=== PATIENT | male | born 1980 | race Caucasian/White ===

== ENCOUNTER → 2021-01-05 15:42 | Outpatient (BNVA) | payer OTHER, SELFPAY | PROVIDERS: Visit Provider Nurse Practitioner Family | DX: Z20.822 Contact with and (suspected) exposure to COVID-19 (principal) | CPT/HCPCS: 87635 ==

== ENCOUNTER → 2023-11-06 13:18 | Outpatient (BNVA) | payer OTHER, SELFPAY | PROVIDERS: Visit Provider Nurse Practitioner Family | DX: I10 Essential (primary) hypertension (principal) | CPT/HCPCS: 80053; 80061; 83036; 84443; 85025 ==

== ENCOUNTER 2024-02-21 18:52 | Emergency (ER) | payer OTHER, SELFPAY ==
[2024-02-21] VITALS (15 sets, daily range): BP systolic 152–211; BP diastolic 92–117; PULSE 61–77; RESP 12–18; TEMP 36.7; O2SAT 15–97; BMI 36.5
--- NOTE | 2024-02-21 20:00 | ECG_ITS ---
[facility] Test Date: 2024-02-21 Pat Name: Pilo Alston Department: Room: Gender: Male Applied Behavior Specialist: : 1980 Requested By: Augustus George Order Number: [id number] Avelina MD: MISSY VICENTE Measurements Intervals [place] Rate: 82 P: 39 VT: 168 QRS: 36 QRSD: 117 T: 54 QT: 379 QTc: 444 Interpretive Statements SINUS RHYTHM MODERATE INTRAVENTRICULAR CONDUCTION DELAY [110+ ms QRS DURATION] No previous ECG available for comparison Electronically Signed On 02-22-2024 00:07:14 CDT by MISSY VICENTE [id number]
--- NOTE | 2024-02-21 20:00 | XRR_ITS ---
PROCEDURE INFORMATION: Exam: XR Chest Exam date and time: 02/21/2024 8:24 PM Age: 43 years old Clinical indication: Patient HX: C/O hypertension TECHNIQUE: Imaging protocol: Radiologic exam of the chest. Views: 1 view. COMPARISON: No relevant prior studies available. FINDINGS: Lungs: Unremarkable. No consolidation. Pleural spaces: Unremarkable. No pleural effusion. No pneumothorax. Heart/Mediastinum: Unremarkable. No cardiomegaly. Bones/joints: Unremarkable. XR/XR chest 1V portable [id number] IMPRESSION: No acute findings.
[2024-02-21 20:07] LABS: Basophils # 0.1 10^3/uL (0.0-0.1); Eosinophils # 0.4 10^3/uL (0.0-0.8); Eosinophils % 3.9 %; Lymphocytes # 2.6 10^3/uL (0.8-4.8); Lymphocytes % 25.9 %; Mean Corpuscular HGB Conc 35.1 g/dL (30-55); Mean Corpuscular Hemoglobin 30.2 pg (27-33); Mean Platelet Volume 10.4 fL (7.4-10.4); Monocytes # 0.9 10^3/uL (0.2-0.9); Monocytes % 8.3 %; Neutrophils # 6.14 10^3/uL (1.8-7.7); Neutrophils % 60.4 %; Nucleated Red Blood Cells % 0 %; Platelet Count 269 10^3/cmm (157-399); Red Blood Count 5.23 10^6/uL (3.85-5.65); Red Cell Distribution Width 12.4 % (12.1-15.1); White Blood Count 10.18 10^3/uL (3.29-11.43)
--- NOTE | 2024-02-21 20:16 | ECG_ITS ---
[facility] Test Date: 2024-02-21 Pat Name: Pilo Alston Department: Room: Gender: Male [employer] Tor[employer] Solderer: : 1980 Requested By: Augustus George Order Number: [id number] Reading MD: MISSY VICENTE Measurements Intervals [place] Rate: 62 P: 37 IL: 175 QRS: 5 QRSD: 86 T: 18 QT: 397 QTc: 404 Interpretive Statements SINUS RHYTHM Compared to ECG 02/21/2024 20:09:31 Intraventricular conduction delay no longer present Electronically Signed On 02-22-2024 00:10:57 CDT by MISSY VICENTE [id number]
[2024-02-21 20:30] LABS: Alanine Aminotransferase 43 U/L (0-41); Albumin Level 4.4 g/dL (3.5-5.2); Alkaline Phosphatase 107 U/L (40-130); Anion Gap 15.9 (5-19); Aspartate Amino Transferase 23 U/L (0-40); Blood Urea Nitrogen 12 mg/dL (6-20); Calcium 8.7 mg/dL (8.5-10.5); Carbon Dioxide 26 mmol/L (22-29); Chloride 103 mmol/L (98-107); Globulin 2.1 g/dL (1.3-4.6); Glomerular Filtration Rate 72.4 mL/min (90-130); Glucose 98 mg/dL (65-115); Osmolality Calculated 292 mOsm/kg (285-295); Potassium 3.9 mmol/L (3.5-5.1); Sodium 141 mmol/L (136-145); Total Bilirubin 0.5 mg/dL (0.15-1.2); Total Protein 6.5 g/dL (6.6-8.7); Troponin(5th) Baseline < 6 ng/L (0-15)
[2024-02-21 20:38] LABS: NT Pro B Type Natriuretic Pept 42 pg/mL (0-125)
[2024-02-21 20:45] LABS: Bilirubin Urine Negative (Negative); Blood Urine Negative (Negative); Glucose Urine UA Negative (Normal); Ketones Urine Negative (Negative); Leukocyte Esterase Urine Negative (Negative); Nitrate Urine Negative (Negative); Protein Urine Negative (Negative); Specific Gravity, Urine 1.007 (1.005-1.030); Urine Appearance Clear (CLEAR); Urine Color Yellow (Yellow); Urobilinogen Urine 0.2 mg/dL (Negative); pH Urine 6.5 (5-7)
[2024-02-21 20:51] LABS: Add Urine Microscopic? YES; Bacteria Urine None Seen /hpf; Hyaline Casts Urine 0-4 /lpf; RBC Urine 0-2 /hpf (0-2); Squamous Epithelial Cell Urine 0-5 /hpf (0-5); WBC Urine 0-5 /hpf (0-5)
[2024-02-21 20:52] LABS: Amphetamines Screen Urine Negative (Negative); Barbiturates Screen Urine Negative (Negative); Benzodiazepines Screen Urine Negative (Negative); Cocaine Screen Urine Negative (Negative); Opiate Screen Urine Negative (Negative); PCP Screen Urine Negative (Negative); THC Screen Urine Negative (Negative)
--- NOTE | 2024-02-21 20:54 | ED_ITS ---
HPI - General Adult 2 General: Chief complaint: General Medical Stated complaint: high bp Time Seen by Provider: 02/21/24 19:33 History of Present Illness: 43-year-old male presents emergency depa rtment with his present chief complaint of significantly elevated blood pressure. Patient has a history of high blood pressure in which he is on 2 blood pressure medications. Patient endorses he only has 1 kidney. 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 Patient does not endorse any current chest pain palpitations shortness of breath or edema to legs he presents to the ER for further assessment and management. Associated symptoms: Reports headache(s); Deny chest pain, dyspnea, malaise, nausea, rash, palpitations or vomiting Related Data Home Medications Medication Instructions Recorded Confirmed indomethacin 25 mg capsule 25 mg PO BID 01/05/21 11/20/23 Previous Rx's Medication Instructions Recorded metoprolol succinate 25 mg 25 mg PO DAILY #30 tabs 11/20/23 tablet,extended release 24 hr olmesartan 40 mg tablet 40 mg PO DAILY #30 tabs 11/20/23 pantoprazole 40 mg tablet,delayed 40 mg PO DAILY #30 tabs 11/20/23 release (Protonix) sertraline 25 mg tablet (Zoloft) 25 mg PO DAILY #30 tabs 11/20/23 metoprolol succinate 50 mg capsule 50 mg PO DAILY #10 ea 02/21/24 sprinkle, ext. release 24 hr Allergies Allergy/AdvReac Type Severity Reaction Status Date / Time No Known Allergies Allergy Verified 02/21/24 19:03 Review of Systems 2 General: Reports: 10 or more systems reviewed and unremarkable except in HPI and below Const: Denies: fever(s), chills, fatigue or malaise Eyes: Denies: change in vision or blurry vision Card: Denies: chest pain or palpitations Resp: Denies: dyspnea or productive cough GI: Denies: abdominal pain, nausea or vomiting : Denies: flank pain Musc: Denies: extremity pain or extremity swelling Skin/Breast: Denies: rash or pruritus Neuro: Reports: headache(s) Psych: Denies: anxiety or depression Gurjit/Lymph: Denies: easy bleeding All/Imm: Denies: urticaria, throat swelling or facial swelling PFSH ED 2 PFSH: Social History Smoking and tobacco/nicotine status: never used tobacco/nicotine Alcohol intake: never Substance/Drug Use: never Adopted: No Housing: House Highest education level completed: High School Graduate Physical Exam 2 Const: COMMON NORMALS: no acute distress, patient oriented x3 and healthy appearing HENMT: COMMON NORMALS: normocephalic and atraumatic HEAD & SCALP: n ormocephalic and atraumatic Eye: COMMON NORMALS: Equal, round and reactive pupils present and EOMs intact bilaterally PUPIL: Yes Equal, round and reactive pupils present Neck/C-Spine: COMMON NORMALS: full ROM, supple and no JVD Lymph: LYMPHATIC: no lymphadenopathy noted Chest: COMMONS NORMALS: normal inspection of the chest and normal palpation of entire chest wall Resp: COMMON NORMALS: normal respiratory effort, No retractions and clear to auscultation bilaterally EFFORT & INSPECTION: Yes able to speak in complete sentences and Yes symmetric chest movement AUSCULTATION: clear to auscultation bilaterally Cardio: COMMON NORMALS: no JVD, regular rate and regular rhythm RATE: r egular rate RHYTHM: regular rhythm GI: COMMON NORMALS: Normal to inspection, nondistended, normoactive bowel sounds present, Soft to palpation and non-tender INSPECTION: Yes normal to inspection PALPATION: Yes Soft to palpation : COMMON NORMALS: Yes no CVA tenderness BLADDER/KIDNEY EXAM: Yes no CVA tenderness Back/Pelvis: COMMON NORMALS: no CVA tenderness Extremity: COMMON NORMALS: normal to inspection and full ROM Neuro: COMMON NORMALS: patient oriented x3, CN's II-XII intact bilaterally, moves all extremities and no focal motor deficits Psych: COMMON NORMALS: mental status grossly normal, Normal thought process present, cooperative and normal affect THOUGHT PROCESS: Normal thought process present Skin: COMMON NORMALS: no rashes or lesions noted GENERAL SKIN EXAM: no rashes or lesions noted Course 2 Vital Signs: Vital signs: Vital Signs Temperature 98.1 F 02/21/24 19:00 Pulse Rate 64 02/21/24 22:06 Respiratory Rate 12 02/21/24 22:06 Blood Pressure 154/96 02/21/24 22:06 Pulse Oximetry 95 02/21/24 22:06 Oxygen Delivery Me thod Room Air 02/21/24 22:06 MDM - General Adult Medical Decision Making Due to patient's symptoms and condition basic cardiac workup will be obtained we will continue to follow patient's cardiac enzymes and lab work came back reassuring he was provided 1 dose of labetalol 150s over 90 patient will be started on a higher dose of his metoprolol advised further follow-up with primary care for further assessment management of his blood pressure management and was to return the interim if any of his symptoms persist or worsen Lab Data 02/21/24 19:15 02/21/24 19:15 Radiology Impressions Chest X-Ray 02/21/24 20:00 IMPRESSION: No acute findings. Laboratory Results WBC 10.18 10^3/uL (3.29-11.43) 02/21/24 19:15 RBC 5.23 10^6/uL (3.85-5.65) 02/21/24 19:15 Hgb 15.80 g/dL (11.27-16.99) 02/21/24 19:15 Hct 45.0 % (37-53) 02/21/24 19:15 MCV 86.0 fl (82-101) 02/21/24 19:15 MCH 30.2 pg (27-33) 02/21/24 19:15 MCHC 35.1 g/dL (30-55) 02/21/24 19:15 RDW 12.4 % (12.1-15.1) 02/21/24 19:15 Plt Count 269 10^3/cmm (157-399) 02/21/24 19:15 MPV 10.4 fL (7.4-10.4) 02/21/24 19:15 Neut % (Auto) 60.4 % 02/21/24 19:15 Lymph % (Auto) 25.9 % 02/21/24 19:15 [place] % (Auto) 8.3 % 02/21/24 19:15 Eos % (Auto) 3.9 % 02/21/24 19:15 Baso % (Auto) 1.0 % 02/21/24 19:15 Neut # (Auto) 6.14 10^3/uL (1.8-7.7) 02/21/24 19:15 Lymph # (Auto) 2.6 10^3/uL (0.8-4.8) 02/21/24 19:15 [place] # (Auto) 0.9 10^3/uL (0.2-0.9) 02/21/24 19:15 Eos # (Auto) 0.4 10^3/uL (0.0-0.8) 02/21/24 19:15 Baso # (Auto) 0.1 10^3/uL (0.0-0.1) 02/21/24 19:15 Nucleated RBC % (auto) 0 % 02/21/24 19:15 Nucleated RBCs # 0.0 /100WBC 02/21/24 19:15 Sodium 141 mmol/L (136-145) 02/21/24 19:15 Potassium 3.9 mmol/L (3.5-5.1) 02/21/24 19:15 Chloride 103 mmol/L (98-107) 02/21/24 19:15 Carbon Dioxide 26 mmol/L (22-29) 02/21/24 19:15 Anion Gap 15.9 (5-19) 02/21/24 19:15 BUN 12 mg/dL (6-20) 02/21/24 19:15 Creatinine 1.1 mg/dL (0.7-1.2) 02/21/24 19:15 GFR Calculation 72.4 mL/min (90-130) L 02/21/24 19:15 Glucose 98 mg/dL (65-115) 02/21/24 19:15 Calculated Osmolality 292 mOsm/kg (285-295) 02/21/24 19:15 Calcium 8.7 mg/dL (8.5-10.5) 02/21/24 19:15 Total Bilirubin 0.5 mg/dL (0.15-1.2) 02/21/24 19:15 AST 23 U/L (0-40) 02/21/24 19:15 ALT 43 U/L (0-41) H 02/21/24 19:15 Alkaline Phosphatase 107 U/L (40-130) 02/21/24 19:15 Troponin T Baseline < 6 ng/L (0-15) 02/21/24 19:15 Troponin T 120 Minute 7.53 ng/L (0-15) 02/21/24 20:48 Delta Troponin T 1.63947 ABS# (0-10) 02/21/24 20:48 NT-Pro-B Natriuret Pep 42 pg/mL (0-125) 02/21/24 19:15 Total Protein 6.5 g/dL (6.6-8.7) L 02/21/24 19:15 Albumin 4.4 g/dL (3.5-5.2) 02/21/24 19:15 Globulin 2.1 g/dL (1.3-4.6) 02/21/24 19:15 Urine Color Yellow (Yellow) 02/21/24 19:15 Urine Appearance Clear (CLEAR) 02/21/24 19:15 Urine pH 6.5 (5-7) 02/21/24 19:15 Ur Specific [place] 1.007 (1.005-1.030) 02/21/24 19:15 Urine Protein Negative (Negative) 02/21/24 19:15 Urine Glucose (UA) Negative (Normal) 02/21/24 19:15 Urine Ketones Negative (Negative) 02/21/24 19:15 Urine Blood Negative (Negative) 02/21/24 19:15 Urine Nitrate Negative (Negative) 02/21/24 19:15 Urine Bilirubin Negative (Negative) 02/21/24 19:15 Urine Urobilinogen 0.2 mg/dL (Negative) 02/21/24 19:15 Ur Leukocyte Esterase Negative (Negative) 02/21/24 19:15 Urine RBC 0-2 /hpf (0-2) 02/21/24 19:15 Urine WBC 0-5 /hpf (0-5) 02/21/24 19:15 Ur Squamous Epith Cells 0-5 /hpf (0-5) 02/21/24 19:15 Amorphous Sediment Not Reportable 02/21/24 19:15 Urine Bacteria None seen /hpf (NONE) 02/21/24 19:15 Hyaline Casts 0-4 /lpf H 02/21/24 19:15 Urine Opiates Screen Negative ng/mL (Negative) 02/21/24 19:15 Ur Barbiturates Screen Negative ng/mL (Negative) 02/21/24 19:15 Ur Phencyclidine Scrn Negative ng/mL (Negative) 02/21/24 19:15 Ur Amphetamines Screen Negative ng/mL (Negative) 02/21/24 19:15 U Benzodiazepines Scrn Negative ng/mL (Negative) 02/21/24 19:15 Urine Cocaine Screen Negative ng/mL (Negative) 02/21/24 19:15 U Marijuana (THC) Screen Negative ng/mL (Negative) 02/21/24 19:15 XR interpretation done by ED provider, pending radiology final review Discharge Plan Discharge Patient Disposition: Home Clinical Impression: Hypertension complications Condition: Stable Prescriptions: New metoprolol succinate 50 mg capsule,sprinkle,ER 24hr 50 mg PO DAILY Qty: 10 0RF No Action indomethacin 25 mg capsule 25 mg PO BID Rx Instructions: administer with food or milk pantoprazole [Protonix] 40 mg tablet,delayed release (DR/EC) 40 mg PO DAILY Qty: 30 2RF sertraline [Zoloft] 25 mg tablet 25 mg PO DAILY Qty: 30 2RF metoprolol succinate 25 mg tablet extended release 24 hr 25 mg PO DAILY Qty: 30 2RF olmesartan 40 mg tablet 40 mg PO DAILY Qty: 30 2RF Discharge Orders: Discharge ED (Routine); Ordered 02/21/24 Ordered By: Augustus George Referrals: Zenia Bryant FNP-C [Primary Care Provider] - 4-7 days Discharge Diet: Low Salt Discharge Activity: Increase activity as tolerated Patient Instructions: DASH Eating Plan (ED), Low-Sodium Diet (ED), Hypertensive Crisis (ED), Hypertension (ED) Activity Restrictions/Additional Instructions: Take medication prescribed was performed, but often 3 to 5 days pressure 2-3 times daily with heart rate, please attempt to reduce amount of nicotine, caffeine and salt in your diet as this will combination will improve your blood pressure Coding Level of Care Code ED Manager Valuation for Julieth Weinstein
[2024-02-21] MEDS: labetalol 5 mg/mL SDV 20mL 10 MG IVP (21:10)
[2024-02-21 21:43] LABS: Troponin 5 2HR 7.53 ng/L (0-15); Troponin 5 2HR Delta 1.53001 ABS# (0-10)
--- NOTE | 2024-02-21 22:07 | PC.NURSE ---
BP Dr. George notified of patient blood pressure 161/102 following labetalol dose. Physician asked for verification of home medications. Patient verified he does take 25 mg metoprolol succinate PO daily and 40 mg olmesartan medoxomil PO daily. Dr. George notified.
== END 2024-02-21 23:00 | disposition home or self-care (01) ==
PROVIDERS: Emergency Provider Emergency Medicine; PCP Nurse Practitioner Family
DX: I10 Essential (primary) hypertension (principal)
CPT/HCPCS: 36415; 71045; 80053; 80306; 81001; 83880; 84484; 85025; 93005; 96374; 99285; J3490

== ENCOUNTER → 2024-12-24 08:12 | Outpatient (BNVA) | payer OTHER, SELFPAY | PROVIDERS: PCP Nurse Practitioner Family; Visit Provider Clinical Nurse Specialist Adult Health | DX: I10 Essential (primary) hypertension (principal); Q60.0 Renal agenesis, unilateral; M10.9 Gout, unspecified; E66.01 Morbid (severe) obesity due to excess calories; N18.9 Chronic kidney disease, unspecified | CPT/HCPCS: 80053; 82306; 82607; 83036; 84550; 85025 ==

== ENCOUNTER → 2025-05-17 09:40 | Outpatient (BNVA) | payer OTHER, SELFPAY | PROVIDERS: PCP Clinical Nurse Specialist Adult Health; Visit Provider Clinical Nurse Specialist Adult Health | DX: I10 Essential (primary) hypertension (principal); E55.9 Vitamin D deficiency, unspecified; K21.9 Gastro-esophageal reflux disease without esophagitis; M10.9 Gout, unspecified; E11.8 Type 2 diabetes mellitus with unspecified complications; Q60.0 Renal agenesis, unilateral; E66.01 Morbid (severe) obesity due to excess calories | CPT/HCPCS: 80048; 80061; 81000; 82043; 82306; 82607; 83036; 84443; 84550; 85025 ==